=== PATIENT | female | born 1990 | race Caucasian/White ===

== ENCOUNTER 2018-05-18 14:09 | Emergency (ER) | payer MEDICAID ==
[2018-05-18 14:17] VITALS: BP 149/75
--- NOTE | 2018-05-18 15:22 | ER Document Report ---
HPI - HPI Pain Level: Denies Notes: Patient is a 27-year-old female with no significant past medical history who presents to the ED complaining of sewage exposure yesterday morning. Patient states that she was sitting on the toilet and started to hear a noise when all of a sudden sewage came out of her toilet and shower "like a Erika." Patient states that the sewage fluid did make contact with her anus and vaginal area. Patient states that she has thoroughly cleaned since then and originally went to the health department who said that she needed to come here. Patient has otherwise been asymptomatic. Denies IV drug use or history of hepatitis, HIV, or other immunocompromise conditions. She has been eating and drinking without difficulties. She is urinating normally and having normal bowel movements. She has not had any vaginal discharge, odor, or bleeding. Denies any headache, fever, URI, sore throat, chest pain, palpitations, syncope, cough, shortness of breath, wheeze, dyspnea, abdominal pain, nausea/vomiting/diarrhea, urinary retention, dysuria, hematuria, or rash. - ROS Systems Reviewed and Negative: Yes All other systems reviewed and negative - REPRODUCTIVE Reproductive: DENIES: : Past Medical History - Social History Smoking Status: Never Smoker Family History: Reviewed & Not Pertinent Neurological Medical History: Reports: Hx Migraine Past Surgical History: Reports: Hx Section - 2, Hx Orthopedic Surgery - back Vertical Provider Document - CONSTITUTIONAL Agree With Documented VS: Yes Notes: PHYSICAL EXAMINATION: GENERAL: Well-appearing, well-nourished and in no acute distress. HEAD: Atraumatic, normocephalic. EYES: Pupils equal round and reactive to light, extraocular movements intact, sclera anicteric, conjunctiva are normal. ENT: Nares patent and without discharge. oropharynx clear without exudates. No tonsilar hypertrophy or erythema. Moist mucous membranes. NECK: Normal range of motion, supple without lymphadenopathy LUNGS: Breath sounds clear to auscultation bilaterally and equal. No wheezes rales or rhonchi. HEART: Regular rate and rhythm without murmurs, rubs, gallops. ABDOMEN: Soft, nontender, nondistended abdomen. No guarding, no rebound. No masses appreciated. Normal bowel sounds present. No CVA tenderness bilaterally. Musculoskeletal: FROM to passive/active. Strength 5+/5. Extremities: No cyanosis, clubbing, or edema b/l. Peripheral pulses 2+. Capillary refill less than 3 seconds. NEUROLOGICAL: Normal speech, normal gait. PSYCH: Normal mood, normal affect. SKIN: Warm, Dry, normal turgor, no rashes or lesions noted. - INFECTION CONTROL TRAVEL OUTSIDE OF THE [place] IN LAST 30 DAYS: No Course - Re-evaluation Re-evalutation: 05/18/18 15:59 Patient is an afebrile, well-hydrated, 27-year-old female who presents to the ED with sewage exposure to her vaginal and anal area without any break in her skin. Vitals are acceptable without any significant tachycardia, tachypnea, or hypoxia. PE is otherwise unremarkable. Patient has been asymptomatic. She is nontoxic-appearing and is tolerating p.o. without difficulty. A panel of labs have been ordered. Rocephin and Zithromax were given as prophylaxis. We did review thoroughly the risk and benefit of antiviral medication in the low risk setting. At this time we feel that antiviral medication risks would outweigh the benefit as reviewed with Dr. Alvarez. Patient verbalized understanding and is in agreement with holding off on the antiviral medication. Patient will need serial labs performed in the future for hepatitis/HIV. No further labs or imaging warranted at this time. Recheck with the health department/PCM in 3-5 days. Return to the ED with any worsening/concerning symptoms otherwise as reviewed discharge. Patient is in agreement. - Vital Signs Vital signs: Temp Pulse Resp BP Pulse Ox 98.4 F 93 18 149/75 H 96 05/18/18 14:16 05/18/18 14:16 05/18/18 14:16 05/18/18 14:16 05/18/18 14:16 Discharge - Discharge Clinical Impression: Patient exposure to body fluids Condition: Stable Disposition: HOME, SELF-CARE Additional Instructions: Maintain adequate fluid and food intake Healthy diet Monitor for any worsening symptoms You will need more lab testing performed 4-6 weeks post exposure, 3 months post exposure, and then 6 months post exposure unless directed otherwise by your continuing care provider. Recheck with your PCM/health department in 3-5 days Return to the ED with any worsening symptoms and/or development of fever, headache, chest pain, palpitations, syncope, shortness of breath, trouble breathing, abdominal pain, n/v/d, blood in stool/urine, weakness, or other worsening symptoms that are concerning to you. Forms: Elevated Blood Pressure Referrals: MILLICENT XIONG PA [Primary Care Provider] - Follow up as needed [facility] [NO LOCAL MD] - Follow up in 3-5 days
[2018-05-18] MEDS ORDERED: AZITHROMYCIN 250 MG TABLET PO ONE (15:36)
[2018-05-18] MEDS ORDERED: CEFTRIAXONE INJ 250 MG VIAL IM ONE (15:36)
[2018-05-18] MEDS ORDERED: LIDOCAINE 1% INJ-PF (10 MG/ML) 30 ML SDV INJ ONE (15:36)
[2018-05-18 16:25] LABS: ABSOLUTE BASOPHILS # (AUTO) 0.2 10^3/uL (0.0-0.2); ABSOLUTE EOSINOPHILS # (AUTO) 0.3 10^3/uL (0.0-0.6); ABSOLUTE LYMPHOCYTES (AUTO) 3.3 10^3/uL (0.5-4.7); ABSOLUTE MONOCYTES (AUTO) 1.1 10^3/uL (0.1-1.4); ABSOLUTE NEUT (AUTO) 7.7 10^3/uL (1.7-8.2); BASOPHILS % (AUTO) 1.3 % (0-2); EOSINOPHILS % (AUTO) 2.7 % (0-6); HEMATOCRIT 43.3 % (36.0-47.0); HEMOGLOBIN 14.5 g/dL (12.0-15.5); MEAN CORPUSCULAR HEMOGLOBIN 29.7 pg (27.0-33.4); MEAN CORPUSCULAR HGB CONC 33.5 g/dL (32.0-36.0); MEAN CORPUSCULAR VOLUME 89 fl (80-97); MONOCYTES % (AUTO) 8.5 % (3-13); RED BLOOD COUNT 4.88 10^6/uL (3.72-5.28); RED CELL DISTRIBUTION WIDTH 13.2 % (11.5-14.0); SEGMENTED NEUTROPHILS % (AUTO) 61.5 % (42-78); TOTAL CELLS COUNTED % (AUTO) 100 %; WHITE BLOOD COUNT 12.6 10^3/uL (4.0-10.5)
[2018-05-18 16:26] LABS: PLATELET COUNT 235 10^3/uL (150-450)
[2018-05-18 16:44] LABS: ALANINE AMINOTRANSFERASE 37 U/L (9-52); ALBUMIN 4.1 g/dL (3.5-5.0); ALKALINE PHOSPHATASE 75 U/L (38-126); ANION GAP 11 (5-19); ASPARTATE AMINO TRANSFERASE 30 U/L (14-36); BILIRUBIN,DIRECT 0.3 mg/dL (0.0-0.4); BILIRUBIN,TOTAL 0.4 mg/dL (0.2-1.3); BLOOD UREA NITROGEN 11 mg/dL (7-20); CALCIUM 9.5 mg/dL (8.4-10.2); CARBON DIOXIDE 25 mmol/L (22-30); CHLORIDE 104 mmol/L (98-107); GLUCOSE 102 mg/dL (75-110); POTASSIUM 4.3 mmol/L (3.6-5.0); SODIUM 140.2 mmol/L (137-145); TOTAL PROTEIN 6.8 g/dL (6.3-8.2)
[2018-05-18 17:58] LABS: CHLAM PCR NOT DETECTED (NOT DETECT); GON PCR NOT DETECTED (NOT DETECT)
[2018-05-21 03:36] LABS: HEPATITIS A AB IGM Negative (Negative); HEPATITIS B CORE AB IGM Negative (Negative); HEPATITS B SURFACE ANTIGEN Negative (Negative)
[2018-05-21 18:30] LABS: HEPATITIS C VIRUS ANTIBODY <0.1 s/co ratio (0.0-0.9)
== END 2018-05-18 16:40 | disposition home or self-care (01) ==
LOC: ER 14:09
DX: Z77.21 Contact with and (suspected) exposure to potentially hazardous body fluids (principal)
CPT/HCPCS: 99283; 96372; 36415; 85025; 81025; 86592; 80053; 86701; 87491; 87591; 80074; Q0144; J3490; J0696

== ENCOUNTER 2019-07-03 17:32 | Inpatient (IN) | payer MEDICAID ==
[2019-07-03] MEDS ORDERED: ACETAMINOPHEN 325 MG TABLET PO PRN (17:45)
[2019-07-03 18:41] LABS: ALBUMIN 2.9 g/dL (3.5-5.0); ALKALINE PHOSPHATASE 105 U/L (38-126); ANION GAP 8 (5-19); ASPARTATE AMINO TRANSFERASE 25 U/L (14-36); BILIRUBIN,DIRECT 0.2 mg/dL (0.0-0.4); BILIRUBIN,TOTAL 0.3 mg/dL (0.2-1.3); BLOOD UREA NITROGEN 10 mg/dL (7-20); CALCIUM 9.3 mg/dL (8.4-10.2); CARBON DIOXIDE 25 mmol/L (22-30); CHLORIDE 103 mmol/L (98-107); GLUCOSE 88 mg/dL (75-110); POTASSIUM 4.1 mmol/L (3.6-5.0); TOTAL PROTEIN 5.6 g/dL (6.3-8.2); URIC ACID 3.4 mg/dL (2.5-6.2)
[2019-07-03 18:44] LABS: URINE AMPHETAMINES SCREEN NEGATIVE; URINE BARBITURATES SCREEN NEGATIVE; URINE BENZODIAZEPINES SCREEN NEGATIVE; URINE COCAINE SCREEN NEGATIVE; URINE MARIJUANA (THC) SCREEN NEGATIVE; URINE METHADONE SCREEN NEGATIVE; URINE PHENCYCLIDINE SCREEN NEGATIVE
[2019-07-03 18:49] LABS: UR PRO/CREAT RATIO RESULT 0.1 mg/mg (0.0-0.2); URINE CREATININE 73.6 mg/dL (16-327); URINE PROTEIN 9.2 mg/dL (<12)
[2019-07-03 18:52] LABS: ABSOLUTE EOSINOPHILS # (AUTO) 0.2 10^3/uL (0.0-0.6); ABSOLUTE LYMPHOCYTES (AUTO) 1.9 10^3/uL (0.5-4.7); ABSOLUTE NEUT (AUTO) 7.9 10^3/uL (1.7-8.2); BASOPHILS % (AUTO) 0.2 % (0-2); EOSINOPHILS % (AUTO) 1.5 % (0-6); HEMATOCRIT 34.6 % (36.0-47.0); HEMOGLOBIN 11.8 g/dL (12.0-15.5); LYMPHOCYTES % (AUTO) 17.4 % (13-45); MEAN CORPUSCULAR HEMOGLOBIN 30.7 pg (27.0-33.4); MEAN CORPUSCULAR VOLUME 90 fl (80-97); MONOCYTES % (AUTO) 9.4 % (3-13); PLATELET COUNT 237 10^3/uL (150-450); RED BLOOD COUNT 3.83 10^6/uL (3.72-5.28); RED CELL DISTRIBUTION WIDTH 13.9 % (11.5-14.0); SEGMENTED NEUTROPHILS % (AUTO) 71.5 % (42-78); TOTAL CELLS COUNTED % (AUTO) 100 %; WHITE BLOOD COUNT 11.1 10^3/uL (4.0-10.5)
[2019-07-03] MEDS ORDERED: BETAMET ACET/BETAMET NA INJ 6 MG/1 ML IM ONE (19:47)
[2019-07-03] MEDS ORDERED: FUROSEMIDE INJ/PF 20 MG/2 ML SDV IV SCH (20:00)
[2019-07-03 20:03] LABS: APPEARANCE,URINE CLEAR; BILIRUBIN,URINE NEGATIVE (NEGATIVE); COLOR,URINE YELLOW; GLUCOSE, URINE NEGATIVE (NEGATIVE); KETONES,URINE NEGATIVE (NEGATIVE); LEUKOCYTE ESTERASE,URINE NEGATIVE (NEGATIVE); NITRITE,URINE NEGATIVE (NEGATIVE); PROTEIN,URINE NEGATIVE (NEGATIVE); URINE SPECIFIC GRAVITY 1.013; UROBILINOGEN,URINE NEGATIVE mg/dL (<2.0)
[2019-07-03] MEDS ORDERED: FUROSEMIDE INJ/PF 40 MG/4 ML SDV ONE (21:14)
[2019-07-03] MEDS ORDERED: BETAMET ACET/BETAMET NA INJ 6 MG/1 ML ONE (21:14)
--- NOTE | 2019-07-03 21:18 | Admission Physical ---
Datetime Report Generated by CPN: 07/03/2019 21:18 CURRENT ADMISSION Chief Complaint: Signs/Symptoms Gestational HTN; Sent from OB Office for Evaluation and Treatment - Please Specify Chief Complaint Other: maternal edema, hypertension Indication for Induction: Not Applicable Admit Impression : , Intrauterine ; No Active Labor; Observation/Evaluation; Medical Complication Admit Plan: Admit to Unit; Observation/Evaluation ALLERGIES Medication Allergies: amoxicillin (07/03/2019); meloxicam (07/03/2019) OBSTETRICAL HISTORY EDC: 08/16/2019 00:00 : 3 Para: 2 Livin Cesareans: 2 PHYSICAL EXAM General: Normal HEENT: Normal Neurologic: Normal Thyroid: Deferred Heart: Normal Lungs: Normal Breast: Deferred Back: Normal Abdomen: Normal Genitourinary Exam: Normal Extremities: Normal DTRs: Normal Pelvic Type: Adequate Vital Signs: Reviewed Details Vital Signs: mostly normal, occasional mild range FETUS A EGA: 33.5 Monitoring: External US FHR- Baseline: 130 Variability: Moderate 6-25bpm Accelerations: 15X15 Decelerations: None FHR Category: Category I Admit Comment: 28yo at 33+5ega presents for evaluation from the office for pitting edema to above umbilicus. Anesthesia consult pending - Dr. Twila parra. ALso with known CHTN on procardia but labs normal and P:C ratio 0.1. Will collect 24 hr UTP. EKG ordered and Cardiology consult requested to rule out peripartum cardiomyopaathy. ECHO ordered. Maternal obesity (BMI 56.6) - anesthesia consult. History of microdiscectomy. On suboxone due to maternal narcotic use. A1GDM. H/o section x 2. Reassuring FWB. Celestone ordered for one dose now then await if need further dose based on ECHO. If Peripartum cardiomyopathy then would need transfer to tertiary care. D/w Anesthesia would need tertiary care for delivery anyway - consult will be placed in chart. c/b h/o Pre E x 2, Anxiety. Admit for at least observation to evaluate cardiac status. INFORMED CONSENT Informed Consent Obtained: Risks, Benefits and Alternatives Discussed Signature: with User ID: [email or web address]
--- NOTE | 2019-07-03 21:30 | PDOC CONSULTATION ---
Consultation Consult Date: 07/03/19 Provider Consulted: SEVERO STEWART Consult reason:: Edema History of Present Illness Admission Date/PCP: 07/03/19 20:00 NO LOCALMD Patient complains of: Edema History of Present Illness: JAMES DOUGLAS is a 28 year old female following active problems 1 -33 weeks 2. Systemic hypertension 3. Nicotine dependence 4. Narcotic dependence 5. Obesity Patient has had 2 previous pregnancies with eclampsia. Both pregnancies were delivered via . Insidious onset of edema is reported. This involves both lower extremities and up to the umbilicus. There is also facial edema. Patient also reports insidious onset of dyspnea. No prior cardiac history is reported otherwise. Patient apparently had an EKG done about a year ago which was unremarkable. A copy is not available for me. Patient smoked cigarettes through most of and switched over to use of vaporized nicotine recently. There is also reported narcotic use. Past Medical History Neurological Medical History: Reports: Migraine Past Surgical History Past Surgical History: Reports: Section - 2, Orthopedic Surgery - back Social History Smoking Status: Former Smoker - Has been using cigarettes up until last week. Presently uses vaporized products Family History Family History: Reviewed & Not Pertinent Parental Family History Reviewed: Yes - Systemic hypertension Children Family History Reviewed: Unknown Sibling(s) Family History Reviewed.: Unknown Medication/Allergy Home Medications: Aspirin [Aspirin 81 mg Chewable Tablet] 81 mg PO DAILY 07/03/19 Buprenorphine HCl [Subutex 2 mg Sl Tablet] 3 mg SL DAILY 07/03/19 Cephalexin [Cephalexin 500 MG Tablet] 1 tab PO QID 07/03/19 Nifedipine [Nifedipine ER] 30 mg PO DAILY 07/03/19 Sertraline HCl [Zoloft 50 mg Tablet] 50 mg PO DAILY 07/03/19 Allergies/Adverse Reactions: amoxicillin [Amoxicillin] Allergy (Verified 07/03/19 19:01) meloxicam [Meloxicam] Allergy (Verified 07/03/19 19:01) Review of Systems Constitutional: PRESENT: as per HPI Eyes: PRESENT: as per HPI Cardiovascular: PRESENT: dyspnea on exertion, edema, orthropnea Respiratory: PRESENT: dyspnea Musculoskeletal: PRESENT: as per HPI Physical Exam Vital Signs: Intake & Output 07/02/19 07/03/19 07/04/19 06:59 06:59 06:59 Weight 163.8 kg General appearance: PRESENT: morbidly obese Head exam: PRESENT: atraumatic, normocephalic Eye exam: PRESENT: conjunctiva pink, EOMI Mouth exam: PRESENT: moist Neck exam: PRESENT: JVD - Difficulty appreciated. Respiratory exam: PRESENT: crackles - Respiratory exam is difficult., decreased breath sounds Cardiovascular exam: PRESENT: +S1, +S2, systolic murmur, tachycardia Pulses: PRESENT: normal radial pulses GI/Abdominal exam: PRESENT: soft Musculoskeletal exam: PRESENT: normal inspection - Bilateral lower extremity edema Skin exam: PRESENT: dry, intact Results Laboratory Results: 07/03/19 18:35 07/03/19 18:08 07/03/19 07/03/19 07/03/19 17:49 18:08 18:08 WBC RBC Hgb Hct MCV MCH MCHC RDW Plt Count Seg Neutrophils % Sodium 135.6 L Potassium 4.1 Chloride 103 Carbon Dioxide 25 Anion Gap 8 BUN 10 Creatinine 0.49 L Est GFR ( Amer) > 60 Glucose 88 Uric Acid 3.4 Calcium 9.3 Magnesium 1.6 Total Bilirubin 0.3 AST 25 Alkaline Phosphatase 105 Total Protein 5.6 L Albumin 2.9 L TSH Urine Color Cancelled Urine Appearance Cancelled Urine pH Cancelled Ur Specific [place] Cancelled Urine Protein Cancelled Urine Glucose (UA) Cancelled Urine Ketones Cancelled Urine Blood Cancelled Urine Nitrite Cancelled Ur Leukocyte Esterase Cancelled Urine WBC (Auto) Cancelled Urine RBC (Auto) Cancelled 07/03/19 07/03/19 07/03/19 18:08 18:35 19:17 WBC 11.1 H RBC 3.83 Hgb 11.8 L Hct 34.6 L MCV 90 MCH 30.7 MCHC 34.0 RDW 13.9 Plt Count 237 Seg Neutrophils % 71.5 Sodium Potassium Chloride Carbon Dioxide Anion Gap BUN Creatinine Est GFR ( Amer) Glucose Uric Acid Calcium Magnesium Total Bilirubin AST Alkaline Phosphatase Total Protein Albumin TSH 1.51 Urine Color YELLOW Urine Appearance CLEAR Urine pH 7.0 Ur Specific [place] 1.013 Urine Protein NEGATIVE Urine Glucose (UA) NEGATIVE Urine Ketones NEGATIVE Urine Blood NEGATIVE Urine Nitrite NEGATIVE Ur Leukocyte Esterase NEGATIVE Urine WBC (Auto) 0 Urine RBC (Auto) 0 EKG Comments: Twelve-lead EKG independently reviewed by me. 07/03/2019 Sinus tachycardia 101 bpm, normal AV conduction, QTC is 450 ms. Assessment & Plan - Diagnosis (1) Edema during , antepartum Is this a current diagnosis for this admission?: Yes Plan: Worsening edema during with concerns for peripartum cardiomyopathy given symptoms including dyspnea. No such similar history is available during prior pregnancies Would recommend empiric treatment with intravenous diuretic especially since patient appears to be volume overloaded by clinical exam We will obtain transthoracic echocardiogram to evaluate heart structure and function and to evaluate for LV dysfunction as cause of symptoms. (2) Chronic hypertension affecting Plan: -induced hypertension. Managed according to protocol. Use of diuretics may drop systolic blood pressure and this may affect management. Will watch carefully.
--- NOTE | 2019-07-03 22:13 | EKG REPORT ---
SEVERITY:- OTHERWISE NORMAL ECG - SINUS TACHYCARDIA : Confirmed by: Karl Ortiz 03-Jul-2019 22:13:03
[2019-07-04] MEDS ORDERED: HYDRALAZINE HCL INJ/PF 20 MG/1 ML SDV IV ONE (07:36)
[2019-07-04] MEDS ORDERED: HYDRALAZINE HCL INJ/PF 20 MG/1 ML SDV ONE (07:42)
[2019-07-04] MEDS ORDERED: SERTRALINE HCL 50 MG TABLET PO SCH (07:45)
[2019-07-04] MEDS ORDERED: (PENDING PHARMACY ID) (Nifedipine [Nifedipine Er] 30 MG) PO SCH (07:45)
[2019-07-04] MEDS ORDERED: NIFEDIPINE 30 MG TAB.ER.24 PO SCH (08:00)
[2019-07-04] MEDS ORDERED: FUROSEMIDE INJ/PF 40 MG/4 ML SDV IV SCH (10:00)
--- NOTE | 2019-07-04 13:36 | XCELERA REPORT ---
[address] [address] Transthoracic Echocardiogram Report Name: JAMES DOUGLAS Age: 28 yrs Gender: Female : 1990 Patient Status: Inpatient Patient Location: [place] [address]^B Study Date: 07/04/2019 10:24 AM History: CHF Pre-Eclampsia Height: 67 in Weight: 361 lb BSA: 2.6 m2 Procedure: A complete two-dimensional transthoracic echocardiogram was performed (2D, M-mode, spectral and color flow Doppler). The study was technically difficult with many images being suboptimal in quality. Reason For Study: maternal edema, rule out peripartum cardiomyopathy Previous Evaluation: No previous studies were available. History: Pregnaancy Preganancy associated hypertension CHF Edema. Ordering Physician: BINA SURESH Performed By: Yanira Alcantara Interpretation Summary The study was technically difficult with many images being suboptimal in quality. Left ventricular systolic function is normal. The Ejection Fraction estimate is 55-60% Doppler measurements suggest impaired left ventricular relaxation, which is associated with grade I/IV or mild diastolic dysfunction The right ventricle is normal in size and function. There is a trace to mild amount of mitral regurgitation There is no aortic valve stenosis There is no pericardial effusion. MMode/2D Measurements & Calculations RVDd: 3.2 cm LVIDd: 4.4 cm FS: 32.6 % Ao root diam: 2.3 cm IVSd: 1.0 cm LVIDs: 3.0 cm EDV(Teich): 87.9 ml Ao root area: 4.2 cm2 LVPWd: 1.1 cm ESV(Teich): 34.1 ml LA dimension: 3.6 cm EF(Teich): 61.1 % Doppler Measurements & Calculations MV E max john: MV P1/2t max john: Ao V2 max: LV V1 max P.3 cm/sec 177.0 cm/sec 169.5 cm/sec 9.2 mmHg MV A max john: MV P1/2t: 67.4 msec Ao max PG: LV V1 max: 134.9 cm/sec MVA(P1/2t): 3.3 cm2 11.5 mmHg 151.4 cm/sec MV E/A: 0.86 MV dec slope: 769.4 cm/sec2 MV dec time: 0.19 sec PA V2 max: MV P1/2t-pr_phl: 118.0 cm/sec 53.1 msec PA max P.6 mmHg Left Ventricle The left ventricle is normal in size. There is moderate concentric left ventricular hypertrophy. Left ventricular systolic function is normal. The Ejection Fraction estimate is 55-60%. Doppler measurements suggest impaired left ventricular relaxation, which is associated with grade I/IV or mild diastolic dysfunction. The left ventricular wall motion is normal. Right Ventricle The right ventricle is normal in size and function. Atria The right atrium is normal. The left atrial size is normal. Mitral Valve The mitral valve is grossly normal. There is no mitral valve stenosis. There is a trace to mild amount of mitral regurgitation. Aortic Valve The aortic valve is not well visualized secondary to technical limitations. There is no aortic valve stenosis. No aortic regurgitation is present. Tricuspid Valve The tricuspid valve is not well visualized, but is grossly normal. There is no tricuspid stenosis. There is a mild amount of tricuspid regurgitation. Pulmonic Valve The pulmonic valve is not well visualized. Great Vessels The aortic root is normal size. The inferior vena cava appeared dilated and decreased < 50% with respiration (RAP 15-20 mmHg). Effusions There is no pericardial effusion. : BINA SURESH Anil
--- NOTE | 2019-07-08 10:36 | PDOC DISCHARGE SUMMARY ---
Impression - Admit/DC Date/PCP Admission Date/Primary Care Provider: 07/03/19 20:00 NO LOCALTN Discharge Date: 07/07/19 - Signed out AMA - Discharge Diagnosis (1) Chronic hypertension affecting Is this a current diagnosis for this admission?: Yes (2) Edema during , antepartum Is this a current diagnosis for this admission?: Yes (3) Gestational diabetes mellitus (GDM) in childbirth, diet controlled Is this a current diagnosis for this admission?: Yes (4) Obesity affecting Is this a current diagnosis for this admission?: Yes - Additional Information Discharge Diet: As Tolerated Discharge Activity: Activity As Tolerated - Patient signed out against medical advice Referrals: KIMBERLY,NO [Primary Care Provider] - Home Medications: Aspirin [Aspirin 81 mg Chewable Tablet] 81 mg PO DAILY 07/03/19 Buprenorphine HCl [Subutex 2 mg Sl Tablet] 3 mg SL DAILY 07/03/19 Cephalexin [Cephalexin 500 MG Tablet] 1 tab PO QID 07/03/19 Nifedipine [Nifedipine ER] 30 mg PO DAILY 07/03/19 Sertraline HCl [Zoloft 50 mg Tablet] 50 mg PO DAILY 07/03/19 History of Present Illiness History of Present Illness: JAMES DOUGLAS is a 28 year old female Results Laboratory Results: WBC 11.1 10^3/uL (4.0-10.5) H 07/03/19 18:35 RBC 3.83 10^6/uL (3.72-5.28) 07/03/19 18:35 Hgb 11.8 g/dL (12.0-15.5) L 07/03/19 18:35 Hct 34.6 % (36.0-47.0) L 07/03/19 18:35 MCV 90 fl (80-97) 07/03/19 18:35 MCH 30.7 pg (27.0-33.4) 07/03/19 18:35 MCHC 34.0 g/dL (32.0-36.0) 07/03/19 18:35 RDW 13.9 % (11.5-14.0) 07/03/19 18:35 Plt Count 237 10^3/uL (150-450) 07/03/19 18:35 Lymph % (Auto) 17.4 % (13-45) 07/03/19 18:35 [place] % (Auto) 9.4 % (3-13) 07/03/19 18:35 Eos % (Auto) 1.5 % (0-6) 07/03/19 18:35 Baso % (Auto) 0.2 % (0-2) 07/03/19 18:35 Absolute Neuts (auto) 7.9 10^3/uL (1.7-8.2) 07/03/19 18:35 Absolute Lymphs (auto) 1.9 10^3/uL (0.5-4.7) 07/03/19 18:35 Absolute Monos (auto) 1.0 10^3/uL (0.1-1.4) 07/03/19 18:35 Absolute Eos (auto) 0.2 10^3/uL (0.0-0.6) 07/03/19 18:35 Absolute Basos (auto) 0.0 10^3/uL (0.0-0.2) 07/03/19 18:35 Seg Neutrophils % 71.5 % (42-78) 07/03/19 18:35 Sodium 135.6 mmol/L (137-145) L 07/03/19 18:08 Potassium 4.1 mmol/L (3.6-5.0) 07/03/19 18:08 Chloride 103 mmol/L (98-107) 07/03/19 18:08 Carbon Dioxide 25 mmol/L (22-30) 07/03/19 18:08 Anion Gap 8 (5-19) 07/03/19 18:08 BUN 10 mg/dL (7-20) 07/03/19 18:08 Creatinine 0.49 mg/dL (0.52-1.25) L 07/03/19 18:08 Est GFR ( Amer) > 60 (>60) 07/03/19 18:08 Est GFR (MDRD) Non-Af > 60 (>60) 07/03/19 18:08 Glucose 88 mg/dL (75-110) 07/03/19 18:08 Uric Acid 3.4 mg/dL (2.5-6.2) 07/03/19 18:08 Calcium 9.3 mg/dL (8.4-10.2) 07/03/19 18:08 Magnesium 1.6 mg/dL (1.6-2.3) 07/03/19 18:08 Total Bilirubin 0.3 mg/dL (0.2-1.3) 07/03/19 18:08 Direct Bilirubin 0.2 mg/dL (0.0-0.4) 07/03/19 18:08 Neonat Total Bilirubin Not Reportable 07/03/19 18:08 Neonat Direct Bilirubin Not Reportable 07/03/19 18:08 Neonat Indirect Bili Not Reportable 07/03/19 18:08 AST 25 U/L (14-36) 07/03/19 18:08 ALT 18 U/L (<35) 07/03/19 18:08 Alkaline Phosphatase 105 U/L (38-126) 07/03/19 18:08 Lactate Dehydrogenase 154 U/L (120-246) 07/03/19 18:08 Total Protein 5.6 g/dL (6.3-8.2) L 07/03/19 18:08 Albumin 2.9 g/dL (3.5-5.0) L 07/03/19 18:08 TSH 1.51 uIU/mL (0.47-4.68) 07/03/19 18:08 Urine Color YELLOW 07/03/19 19:17 Urine Appearance CLEAR 07/03/19 19:17 Urine pH 7.0 (5.0-9.0) 07/03/19 19:17 Ur Specific [place] 1.013 07/03/19 19:17 Urine Protein NEGATIVE mg/dL (NEGATIVE) 07/03/19 19:17 Urine Glucose (UA) NEGATIVE mg/dL (NEGATIVE) 07/03/19 19:17 Urine Ketones NEGATIVE mg/dL (NEGATIVE) 07/03/19 19:17 Urine Blood NEGATIVE (NEGATIVE) 07/03/19 19:17 Urine Nitrite NEGATIVE (NEGATIVE) 07/03/19 19:17 Urine Bilirubin NEGATIVE (NEGATIVE) 07/03/19 19:17 Urine Urobilinogen NEGATIVE mg/dL (<2.0) 07/03/19 19:17 Ur Leukocyte Esterase NEGATIVE (NEGATIVE) 07/03/19 19:17 Urine WBC (Auto) 0 /HPF 07/03/19 19:17 Urine RBC (Auto) 0 /HPF 07/03/19 19:17 U Hyaline Cast (Auto) Cancelled 07/03/19 17:49 Urine Bacteria (Auto) Cancelled 07/03/19 17:49 Urine Red Cell Clumps Cancelled 07/03/19 17:49 Urine WBC Clumps Cancelled 07/03/19 17:49 Squamous Epi Cells Auto <1 /HPF 07/03/19 19:17 U Non-Squamous Epis Auto Cancelled 07/03/19 17:49 Calcium Carbonate Cryst Cancelled 07/03/19 17:49 Calcium Phosphate Cryst Cancelled 07/03/19 17:49 Calcium Oxalate Cr Auto Cancelled 07/03/19 17:49 Leucine Crystals Cancelled 07/03/19 17:49 Cystine Crystals Cancelled 07/03/19 17:49 Uric Acid Cryst (Auto) Cancelled 07/03/19 17:49 Triple Phos Cryst (Auto) Cancelled 07/03/19 17:49 Tyrosine Crystals Cancelled 07/03/19 17:49 Amorphous Sediment Auto Cancelled 07/03/19 17:49 Cellular Casts Cancelled 07/03/19 17:49 Epithelial Casts (Auto) Cancelled 07/03/19 17:49 Fatty Casts Cancelled 07/03/19 17:49 Granular Casts (Auto) Cancelled 07/03/19 17:49 Waxy Casts (Auto) Cancelled 07/03/19 17:49 Broad Casts Cancelled 07/03/19 17:49 RBC Casts (Auto) Cancelled 07/03/19 17:49 WBC Casts (Auto) Cancelled 07/03/19 17:49 Urine Mucus (Auto) RARE /LPF 07/03/19 19:17 U Trichomonas (Auto) Cancelled 07/03/19 17:49 Ur Yeast w Hyphae Cancelled 07/03/19 17:49 Urine Yeast (Budding) Cancelled 07/03/19 17:49 Urine Creatinine 73.6 mg/dL (16-327) 07/03/19 17:49 Protein/Creatinin Ratio 0.1 mg/mg (0.0-0.2) 07/03/19 17:49 Urine Total Protein 9.2 mg/dL (<12) 07/03/19 17:49 Urine Ascorbic Acid NEGATIVE (NEGATIVE) 07/03/19 19:17 Urine Opiates Screen NEGATIVE 07/03/19 17:49 Urine Methadone Screen NEGATIVE 07/03/19 17:49 Ur Barbiturates Screen NEGATIVE 07/03/19 17:49 Ur Phencyclidine Scrn NEGATIVE 07/03/19 17:49 Ur Amphetamines Screen NEGATIVE 07/03/19 17:49 U Benzodiazepines Scrn NEGATIVE 07/03/19 17:49 Urine Cocaine Screen NEGATIVE 07/03/19 17:49 U Marijuana (THC) Screen NEGATIVE 07/03/19 17:49 Stroke Is this a Stroke Patient?: No Acute Heart Failure - Is this a Heart Failure Patient?: No
== END 2019-07-04 11:41 | disposition home or self-care (01) | DRG 832 ==
LOC: LC 17:32 → LR 19:30 → UNDOADMOB 20:00 → OBSVTOIN 20:00 → LR 20:00 → INTOOBSV 20:00 → UNDODISOB 07-04 11:41
PROVIDERS: ADMIT Student in an Organized Health Care Education/Training Program; ATTEND Student in an Organized Health Care Education/Training Program
DX: O13.3 Gestational [pregnancy-induced] hypertension without significant proteinuria, third trimester (principal); F11.20 Opioid dependence, uncomplicated; O99.323 Drug use complicating pregnancy, third trimester; O24.410 Gestational diabetes mellitus in pregnancy, diet controlled; Z3A.33 33 weeks gestation of pregnancy; O34.219 Maternal care for unspecified type scar from previous cesarean delivery; O99.213 Obesity complicating pregnancy, third trimester; E66.9 Obesity, unspecified; O99.333 Smoking (tobacco) complicating pregnancy, third trimester; F17.290 Nicotine dependence, other tobacco product, uncomplicated; Z88.0 Allergy status to penicillin
CPT/HCPCS: 36415; 59025; 80053; 80307; 81001; 82570; 83615; 83735; 84156; 84443; 84550; 85025; 87081; 93005; 93010; 93306; J0360; J0702; J1940

== ENCOUNTER 2019-07-04 21:08 | Outpatient (CLI) | payer MEDICAID ==
[~2019-07-04 21:08] MED LIST: BETAMET ACET/BETAMET NA INJ 6 MG/1 ML IM PRN
[2019-07-04] MEDS ORDERED: BETAMET ACET/BETAMET NA INJ 6 MG/1 ML ONE (21:12)
== END 2019-07-04 21:23 | disposition home or self-care (01) ==
LOC: LC 21:08
PROVIDERS: ATTEND Obstetrics & Gynecology
PROC: 4A1HXCZ Monitoring of Products of Conception, Cardiac Rate, External Approach (ICD-10-PCS; principal; 2019-07-04)
DX: O14.93 Unspecified pre-eclampsia, third trimester (principal); Z3A.33 33 weeks gestation of pregnancy
CPT/HCPCS: 59025; 96372; J0702

== ENCOUNTER → 2019-08-11 | Outpatient (CLI) | payer MEDICAID ==
[2019-08-11 13:02] LABS: ABSOLUTE BASOPHILS # (AUTO) 0.1 10^3/uL (0.0-0.2); ABSOLUTE EOSINOPHILS # (AUTO) 0.2 10^3/uL (0.0-0.6); ABSOLUTE LYMPHOCYTES (AUTO) 1.7 10^3/uL (0.5-4.7); ABSOLUTE MONOCYTES (AUTO) 1.1 10^3/uL (0.1-1.4); ABSOLUTE NEUT (AUTO) 6.8 10^3/uL (1.7-8.2); BASOPHILS % (AUTO) 0.6 % (0-2); EOSINOPHILS % (AUTO) 1.6 % (0-6); HEMATOCRIT 33.1 % (36.0-47.0); HEMOGLOBIN 11.5 g/dL (12.0-15.5); LYMPHOCYTES % (AUTO) 17.7 % (13-45); MEAN CORPUSCULAR HEMOGLOBIN 31.1 pg (27.0-33.4); MEAN CORPUSCULAR HGB CONC 34.8 g/dL (32.0-36.0); MEAN CORPUSCULAR VOLUME 89 fl (80-97); MONOCYTES % (AUTO) 11.4 % (3-13); PLATELET COUNT 345 10^3/uL (150-450); RED BLOOD COUNT 3.71 10^6/uL (3.72-5.28); RED CELL DISTRIBUTION WIDTH 13.5 % (11.5-14.0); SEGMENTED NEUTROPHILS % (AUTO) 68.7 % (42-78); TOTAL CELLS COUNTED % (AUTO) 100 %; WHITE BLOOD COUNT 9.9 10^3/uL (4.0-10.5)
[2019-08-11 13:27] LABS: ALBUMIN 3.1 g/dL (3.5-5.0); ALKALINE PHOSPHATASE 108 U/L (38-126); ANION GAP 7 (5-19); ASPARTATE AMINO TRANSFERASE 31 U/L (14-36); BILIRUBIN,DIRECT 0.4 mg/dL (0.0-0.4); BILIRUBIN,TOTAL 0.4 mg/dL (0.2-1.3); BLOOD UREA NITROGEN 16 mg/dL (7-20); CALCIUM 8.7 mg/dL (8.4-10.2); CARBON DIOXIDE 28 mmol/L (22-30); CHLORIDE 103 mmol/L (98-107); GLUCOSE 79 mg/dL (75-110); POTASSIUM 4.2 mmol/L (3.6-5.0); TOTAL PROTEIN 5.9 g/dL (6.3-8.2); URIC ACID 3.8 mg/dL (2.5-6.2)
== END ==
LOC: OD 12:01
PROVIDERS: ATTEND Student in an Organized Health Care Education/Training Program
DX: R60.9 Edema, unspecified (principal)
CPT/HCPCS: 36415; 80053; 83615; 83735; 84550; 85025

== ENCOUNTER → 2019-10-18 | Outpatient (CLI) | payer MEDICAID ==
--- NOTE | 2019-10-18 12:41 | RADIOLOGY REPORT (SQ) ---
EXAM DESCRIPTION: CHEST PA/LATERAL IMAGES COMPLETED DATE/TIME: 10/18/2019 12:22 pm REASON FOR STUDY: SHORTNESS OF BREATH COMPARISON: None. EXAM PARAMETERS: NUMBER OF VIEWS: two views TECHNIQUE: Digital Frontal and Lateral radiographic views of the chest acquired. RADIATION DOSE: NA LIMITATIONS: none FINDINGS: LUNGS AND PLEURA: No opacities, masses or pneumothorax. No pleural effusion. MEDIASTINUM AND HILAR STRUCTURES: No masses or contour abnormalities. HEART AND VASCULAR STRUCTURES: Heart normal size. No evidence for failure. BONES: No acute findings. HARDWARE: None in the chest. OTHER: No other significant finding. IMPRESSION: NO SIGNIFICANT RADIOGRAPHIC FINDING IN THE CHEST. TECHNICAL DOCUMENTATION: JOB ID: [id number] 2010 [employer]- All Rights Reserved Reading location - IP/workstation name: [email or web address]
[2019-10-18 12:44] LABS: ABSOLUTE BASOPHILS # (AUTO) 0.1 10^3/uL (0.0-0.2); ABSOLUTE EOSINOPHILS # (AUTO) 0.3 10^3/uL (0.0-0.6); ABSOLUTE LYMPHOCYTES (AUTO) 2.5 10^3/uL (0.5-4.7); ABSOLUTE MONOCYTES (AUTO) 0.9 10^3/uL (0.1-1.4); BASOPHILS % (AUTO) 0.5 % (0-2); EOSINOPHILS % (AUTO) 2.6 % (0-6); HEMOGLOBIN 13.5 g/dL (12.0-15.5); LYMPHOCYTES % (AUTO) 25.9 % (13-45); MEAN CORPUSCULAR HEMOGLOBIN 29.6 pg (27.0-33.4); MEAN CORPUSCULAR HGB CONC 33.8 g/dL (32.0-36.0); MEAN CORPUSCULAR VOLUME 88 fl (80-97); MONOCYTES % (AUTO) 9.4 % (3-13); PLATELET COUNT 294 10^3/uL (150-450); RED BLOOD COUNT 4.56 10^6/uL (3.72-5.28); RED CELL DISTRIBUTION WIDTH 14.6 % (11.5-14.0); SEGMENTED NEUTROPHILS % (AUTO) 61.6 % (42-78); TOTAL CELLS COUNTED % (AUTO) 100 %; WHITE BLOOD COUNT 9.7 10^3/uL (4.0-10.5)
[2019-10-18 13:03] LABS: ALBUMIN 4.3 g/dL (3.5-5.0); ALKALINE PHOSPHATASE 76 U/L (38-126); ANION GAP 6 (5-19); ASPARTATE AMINO TRANSFERASE 26 U/L (14-36); BILIRUBIN,TOTAL 0.4 mg/dL (0.2-1.3); BLOOD UREA NITROGEN 13 mg/dL (7-20); CALCIUM 9.6 mg/dL (8.4-10.2); CARBON DIOXIDE 30 mmol/L (22-30); CHLORIDE 101 mmol/L (98-107); CHOLESTEROL 131.79 mg/dL (0-200); GLUCOSE 81 mg/dL (75-110); POTASSIUM 4.5 mmol/L (3.6-5.0); TOTAL PROTEIN 7.1 g/dL (6.3-8.2); TRIGLYCERIDES 76 mg/dL (<150)
[2019-10-18 13:15] LABS: DIRECT LDL 94 mg/dL (<100)
== END ==
LOC: OD 12:02
PROVIDERS: ATTEND Nurse Practitioner Family
DX: I10 Essential (primary) hypertension (principal); K21.0 Gastro-esophageal reflux disease with esophagitis; R06.02 Shortness of breath; E66.01 Morbid (severe) obesity due to excess calories
CPT/HCPCS: 36415; 71046; 80053; 80061; 83036; 83880; 84443; 85025

== ENCOUNTER 2020-05-31 16:59 | Emergency (ER) | payer MEDICAID ==
--- NOTE | 2020-05-31 17:20 | ER Document Report ---
ED Medical Screen (RME) - General Chief Complaint: Abdominal Pain Stated Complaint: ABDOMINAL PAIN Time Seen by Provider: 05/31/20 17:17 Primary Care Provider: CHELY HOLLOWAY NP [Primary Care Provider] - Follow up as needed Mode of Arrival: Ambulatory Information source: Patient Notes: 29-year-old female presented to ED for complaint of right upper quadrant abdominal pain with nausea. She does have pain to palpation to the right upper quadrant. She states she still has her gallbladder. She states she has been nauseated but no vomiting. She states her last menstrual period was about 3 weeks ago. Will order Zofran for her at this time as well as blood urine and ultrasound. Patient is alert oriented respirations regular nonlabored speaking in full sentences. I have greeted and performed a rapid initial assessment of this patient. A comprehensive ED assessment and evaluation of the patient, analysis of test results and completion of medical decision making process will be conducted by an additional ED providers. TRAVEL OUTSIDE OF THE [place] IN LAST 30 DAYS: No - Related Data Allergies/Adverse Reactions: amoxicillin [Amoxicillin] Allergy (Verified 07/03/19 19:01) meloxicam [Meloxicam] Allergy (Verified 07/03/19 19:01) Past Medical History Neurological Medical History: Reports: Hx Migraine Renal/ Medical History: Denies: Hx Peritoneal Dialysis Past Surgical History: Reports: Hx Section - 2, Hx Orthopedic Surgery - back Physical Exam - Vital signs Vitals: Temp Pulse Resp BP Pulse Ox 98.7 F 85 20 156/86 H 97 05/31/20 17:21 05/31/20 17:21 05/31/20 17:21 05/31/20 17:21 05/31/20 17:21 Course - Vital Signs Vital signs: Temp Pulse Resp BP Pulse Ox 98.7 F 85 20 156/86 H 97 05/31/20 17:21 05/31/20 17:21 05/31/20 17:21 05/31/20 17:21 05/31/20 17:21 Doctor's Discharge - Discharge Referrals: CHELY HOLLOWAY NP [Primary Care Provider] - Follow up as needed
--- NOTE | 2020-05-31 18:08 | RADIOLOGY REPORT (SQ) ---
EXAM DESCRIPTION: U/S ABDOMEN LIMITED W/O DOP IMAGES COMPLETED DATE/TIME: 05/31/2020 5:50 pm REASON FOR STUDY: Right upper quadrant abdominal pain nausea x3 days COMPARISON: None. TECHNIQUE: Dynamic and static grayscale images acquired of the abdomen and recorded on PACS. Vinho jayme selected color Doppler and spectral images recorded. LIMITATIONS: None. FINDINGS: PANCREAS: No masses. Visualized pancreatic duct normal caliber. LIVER: Hepatomegaly. Increased echogenicity. No definable masses. LIVER VASCULATURE: Normal directional flow of the main portal vein and hepatic veins. GALLBLADDER: Questionable small amount of sludge. Study limited by body habitus. No gallstones are seen. ULTRASOUND-DETECTED HATHAWAY'S SIGN: Negative. INTRAHEPATIC DUCTS AND COMMON DUCT: CBD and intrahepatic ducts normal caliber. No filling defects. AORTA: No aneurysm. The distal aorta could not be seen. RIGHT KIDNEY: Normal size, 14 cm. Normal echogenicity. No solid or suspicious masses. No hydronephro sis. No calcifications. PERITONEAL AND RIGHT PLEURAL SPACE: No ascites or effusions. OTHER: No other significant findings. IMPRESSION: Hepatomegaly. Hepatic steatosis. Possible small amount of sludge in the gallbladder. TECHNICAL DOCUMENTATION: JOB ID: [id number] 2010 [employer]- All Rights Reserved Reading location - IP/workstation name: [email or web address]
[2020-05-31 18:16] LABS: ABSOLUTE BASOPHILS # (AUTO) 0.1 10^3/uL (0.0-0.2); ABSOLUTE EOSINOPHILS # (AUTO) 0.3 10^3/uL (0.0-0.6); ABSOLUTE LYMPHOCYTES (AUTO) 3.2 10^3/uL (0.5-4.7); ABSOLUTE MONOCYTES (AUTO) 0.9 10^3/uL (0.1-1.4); ABSOLUTE NEUT (AUTO) 6.4 10^3/uL (1.7-8.2); BASOPHILS % (AUTO) 0.8 % (0-2); EOSINOPHILS % (AUTO) 2.6 % (0-6); HEMATOCRIT 41.8 % (36.0-47.0); HEMOGLOBIN 14.2 g/dL (12.0-15.5); LYMPHOCYTES % (AUTO) 29.6 % (13-45); MEAN CORPUSCULAR HEMOGLOBIN 30.3 pg (27.0-33.4); MEAN CORPUSCULAR VOLUME 89 fl (80-97); MONOCYTES % (AUTO) 7.9 % (3-13); PLATELET COUNT 309 10^3/uL (150-450); RED CELL DISTRIBUTION WIDTH 12.8 % (11.5-14.0); SEGMENTED NEUTROPHILS % (AUTO) 59.1 % (42-78); TOTAL CELLS COUNTED % (AUTO) 100 %; WHITE BLOOD COUNT 10.8 10^3/uL (4.0-10.5)
[2020-05-31 18:20] LABS: APPEARANCE,URINE CLEAR; BILIRUBIN,URINE NEGATIVE (NEGATIVE); COLOR,URINE STRAW; GLUCOSE, URINE NEGATIVE (NEGATIVE); KETONES,URINE NEGATIVE (NEGATIVE); LEUKOCYTE ESTERASE,URINE NEGATIVE (NEGATIVE); NITRITE,URINE NEGATIVE (NEGATIVE); PROTEIN,URINE NEGATIVE (NEGATIVE); URINE SPECIFIC GRAVITY 1.013; UROBILINOGEN,URINE NEGATIVE mg/dL (<2.0)
[2020-05-31 18:35] LABS: ALBUMIN 4.3 g/dL (3.5-5.0); ALKALINE PHOSPHATASE 79 U/L (38-126); ANION GAP 9 (5-19); ASPARTATE AMINO TRANSFERASE 34 U/L (14-36); BILIRUBIN,DIRECT 0.2 mg/dL (0.0-0.4); BILIRUBIN,TOTAL 0.3 mg/dL (0.2-1.3); BLOOD UREA NITROGEN 17 mg/dL (7-20); CALCIUM 9.5 mg/dL (8.4-10.2); CARBON DIOXIDE 28 mmol/L (22-30); CHLORIDE 101 mmol/L (98-107); GLUCOSE 111 mg/dL (75-110); POTASSIUM 4.2 mmol/L (3.6-5.0)
[2020-05-31] MEDS ORDERED: ONDANSETRON 4 MG TAB.RAPDIS PO ONE (20:48)
--- NOTE | 2020-05-31 20:49 | ER Document Report ---
ED GI/ - General Chief Complaint: Upper Abdominal Pain Stated Complaint: ABDOMINAL PAIN Time Seen by Provider: 05/31/20 17:17 Primary Care Provider: NORBERT SLATER MD [ACTIVE STAFF] - Follow up in 3-5 days (for outpatient surgery follow up) CHELY HOLLOWAY NP [Primary Care Provider] - Follow up in 3-5 days Mode of Arrival: Ambulatory TRAVEL OUTSIDE OF THE [place] IN LAST 30 DAYS: No - HPI Notes: 29-year-old female to the emergency department with complaints of right upper quadrant abdominal pain with associated nausea that began 3 days ago. It seems to get worse every time she eats. She is noticed that last night when she made Pasta shells with cheese she had significant dull pain in the right upper quadrant. She denies any fevers or chills. She still has her gallbladder. She denies any flank pain. She denies any urinary complaints. She states that she has been trying to eat a healthier diet but even today when she had vegetable pizza and a spinach salad she still continues have pain. Denies any amanda vomiting. Of note, she is on Suboxone for chronic pain management. - Related Data Allergies/Adverse Reactions: amoxicillin [Amoxicillin] Allergy (Verified 07/03/19 19:01) meloxicam [Meloxicam] Allergy (Verified 07/03/19 19:01) Past Medical History - General Information source: Patient - Social History Smoking Status: Current Every Day Smoker Frequency of alcohol use: Rare Drug Abuse: None Family History: Reviewed & Not Pertinent Neurological Medical History: Reports: Hx Migraine Renal/ Medical History: Denies: Hx Peritoneal Dialysis Past Surgical History: Reports: Hx Section - 2, Hx Orthopedic Surgery - back Review of Systems - Review of Systems Constitutional: denies: Chills, Fever EENT: No symptoms reported Cardiovascular: denies: Chest pain, Palpitations, Heart racing, Orthopnea, Dy spnea, Syncope, Dizziness, Lightheaded Respiratory: denies: Cough, Short of breath Gastrointestinal: Abdominal pain, Nausea. denies: Diarrhea, Vomiting Genitourinary: denies: Burning, Dysuria, Discharge, Frequency, Flank pain, Hematuria Female Genitourinary: No symptoms reported Musculoskeletal: No symptoms reported Skin: No symptoms reported Neurological/Psychological: No symptoms reported -: Yes All other systems reviewed and negative Physical Exam - Vital signs Vitals: Temp Pulse Resp BP Pulse Ox 98.7 F 85 20 156/86 H 97 05/31/20 17:21 05/31/20 17:21 05/31/20 17:21 05/31/20 17:21 05/31/20 17:21 Interpretation: Normal - Notes Notes: PHYSICAL EXAMINATION: GENERAL: Well-appearing, well-nourished and in no acute distress. Morbidly obese HEAD: Atraumatic, normocephalic. EYES: Pupils equal round and reactive to light, extraocular movements intact, sclera anicteric, conjunctiva are normal. ENT: nares patent, oropharynx clear without exudates. Moist mucous membranes. NECK: Normal range of motion, supple without lymphadenopathy LUNGS: Breath sounds clear to auscultation bilaterally and equal. No wheezes rales or rhonchi. HEART: Regular rate and rhythm without murmurs ABDOMEN: Soft, morbidly obese, there is tenderness to palpation to the epigastrium and right upper quadrant, there is no Geller sign, normoactive bowel sounds. No guarding, no rebound. No masses appreciated. No CVA tenderness EXTREMITIES: Normal range of motion, no pitting or edema. No cyanosis. NEUROLOGICAL: No focal neurological deficits. Moves all extremities spontaneously and on command. PSYCH: Normal mood, normal affect. SKIN: Warm, Dry, normal turgor, no rashes or lesions noted. Course - Vital Signs Vital signs: Temp Pulse Resp BP Pulse Ox 98.7 F 79 16 164/90 H 96 05/31/20 17:21 05/31/20 20:55 05/31/20 20:55 05/31/20 20:55 05/31/20 20:55 - Laboratory Result Diagrams: 05/31/20 17:56 05/31/20 17:56 Laboratory results interpreted by me: 05/31/20 05/31/20 17:56 17:56 WBC 10.8 H Glucose 111 H Discharge - Discharge Clinical Impression: Right upper quadrant pain, Gallbladder sludge Condition: Stable Disposition: HOME, SELF-CARE Instructions: Abdominal Pain ([facility]), Gallbladder Disease ([facility]) Additional Instructions: Follow up with outpatient surgeon on Wednesday. Adhere to a low fat diet. Return if worsening symptoms such as fever, intractable pain, intractable vomiting, ye llowing of skin or eyes. Prescriptions: Ondansetron [Zofran Odt 4 mg Tablet] 1 - 2 tab PO Q4H PRN #15 tab.rapdis PRN Reason: For Nausea/Vomiting Referrals: CHELY HOLLOWAY NP [Primary Care Provider] - Follow up in 3-5 days NORBERT SLATER MD [ACTIVE STAFF] - Follow up in 3-5 days (for outpatient surgery follow up)
[2020-05-31 21:02] VITALS: BP 164/90
== END 2020-05-31 21:02 | disposition home or self-care (01) ==
LOC: ER 16:59
DX: K82.8 Other specified diseases of gallbladder (principal); R10.11 Right upper quadrant pain; R10.811 Right upper quadrant abdominal tenderness; R10.816 Epigastric abdominal tenderness; R11.0 Nausea; G89.29 Other chronic pain; E66.01 Morbid (severe) obesity due to excess calories; F17.200 Nicotine dependence, unspecified, uncomplicated; Z79.899 Other long term (current) drug therapy; Z88.0 Allergy status to penicillin; Z88.8 Allergy status to other drugs, medicaments and biological substances
CPT/HCPCS: 99284; 36415; 83690; 84703; 85025; 80053; 81001; 76705; S0119